=== PATIENT | female | born 1975 | race Caucasian/White ===

== ENCOUNTER → 2018-04-09 09:35 | Outpatient (CLI) | payer OTHER, SELFPAY | PROVIDERS: Family Provider Obstetrics & Gynecology; PCP Obstetrics & Gynecology; Visit Provider Physician Assistant | DX: K26.9 Duodenal ulcer, unspecified as acute or chronic, without hemorrhage or perforation (principal) | CPT/HCPCS: 83013 ==

== ENCOUNTER → 2018-05-23 10:34 | Outpatient (CLI) | payer OTHER, SELFPAY ==
--- NOTE | 2018-05-23 | DI.MG.S_ITS ---
BILATERAL DIGITAL SCREENING MAMMOGRAM 3D/2D WITH CAD: 05/23/2018 CLINICAL: Routine screening. Family history of breast cancer. Comparison is made to exam dated: 03/16/2017 mammogram - [facility]. The tissue of both breasts is heterogeneously dense. This may lower the sensitivity of mammography. Current study was also evaluated with a Computer Aided Detection (CAD) system. No significant masses, calcifications, or other findings are seen in either breast. There has been no significant interval change. IMPRESSION: NEGATIVE There is no mammographic evidence of malignancy. A 1 year screening mammogram is recommended. This exam was interpreted at Station ID: [id number]. NOTE: For mammograms, a report in lay terms will be sent to the patient. Approximately 15% of breast malignancies will not be visualized mammographically. In the management of a palpable breast mass, a negative mammogram must not discourage biopsy of a clinically suspicious lesion. Electronically Signed By: Manuel marshall/jessica:05/23/2018 17:40:05 copy to: Alyssa Leon letter sent: Normal Exam ACR BI-RADS Category 1: Negative 3341F
== END ==
PROVIDERS: PCP Obstetrics & Gynecology; Visit Provider Obstetrics & Gynecology
DX: Z12.31 Encounter for screening mammogram for malignant neoplasm of breast (principal); Z80.3 Family history of malignant neoplasm of breast
CPT/HCPCS: 77063; 77067

== ENCOUNTER 2018-07-21 22:26 | Emergency (ER) | payer OTHER, SELFPAY ==
[2018-07-21 22:38] VITALS: BP 163/94; PULSE 71; RESP 18; TEMP 36.7; O2SAT 99; BMI 22.1
--- NOTE | 2018-07-21 22:39 | ED.ABDPAIN ---
HPI - Abdominal Pain General Chief Complaint: Abdominal Pain Stated Complaint: states Ulcers Time Seen by Provider: 07/21/18 22:29 Source: patient Mode of arrival: ambulatory Limitations: no limitations History of Present Illness HPI narrative: Patient is 43-year-old female here for evaluation of which she thinks is worsening of her gastric ulcers. Patient has been diagnosed with gastric ulcers in the past. Does have a prescription for omeprazole. She states that the pain in her abdomen started within the past 12-24 hours. Does get worse after eating. She states that her normal ulcer medication at home is not working. She does feel like this abdominal pain is somewhat different than her prior ulcer pain. Related Data Previous Rx's Medication Instructions Recorded norgestimate 0.25 mg-ethinyl 1 tab PO QDAY #84 tab 04/16/18 estradiol 35 mcg tablet Allergies Allergy/AdvReac Type Severity Reaction Status Date / Time No Known Allergies Allergy Unknown Verified 07/22/18 00:07 Review of Systems Constitutional Denies fever(s) and Denies headache(s) ENT Ears, Nose, Mouth, and Throat: Denies headache(s) Cardiovascular Denies chest pain and Denies dyspnea Respiratory Denies dyspnea Gastrointestinal Gastrointestinal: Reports abdominal pain, Denies melena, Denies change in stool character, Denies constipation, Reports dyspepsia, Reports heartburn, Reports nausea and Denies vomiting Genitourinary Denies dysuria and Denies vaginal discharge Musculoskeletal Denies myalgias and Denies arthralgias Integumentary/Breasts Denies rash Neurologic Denies headache(s) Hematologic/Lymphatic Comments: Not on anticoagulation PFSH Medical History Skin cancer (Resolved) Surgical History No history of previous surgery (Resolved) Family History Father No problems noted. Mother No problems noted. Social History Smoking Status: Never smoker second hand exposure: No alcohol intake: former (I was never a big drinker. I only drank once in a while.) substance use type: does not use Exam Initial Vital Signs Initial Vital Signs: Vital Signs Temperature 98.0 F 07/21/18 22:38 Pulse Rate 71 07/21/18 22:38 Respiratory Rate 18 07/21/18 22:38 Blood Pressure 163/94 H 07/21/18 22:38 Pulse Oximetry 99 07/21/18 22:38 Const General: cooperative, healthy appearing, well developed, well groomed and No acute distress Orientation: alert, awake and oriented x3 HENMT Head: normal to inspection and normocephalic Resp Effort & Inspection: normal respiratory effort Auscultation: clear to auscultation bilaterally Cardio Rate: regular rate Rhythm: regular rhythm GI Inspection: non-distended Palpation: soft, No guarding and tender (Right upper quadrant epigastric) Back/Spine/Pelvis Back: No CVA tenderness Skin Lesions: no lesions Rashes: no rashes Neuro General: alert, awake and oriented x3 Cognition: normal cognition Speech: speech normal Motor: muscle tone normal throughout Sensory Exam: no sensory deficits noted Extrem General: normal to inspection and capillary refill normal Psych Appearance: grossly normal and well kempt Course Orders Ordered: ED Orders 07/21/18 22:51 XR abdomen 1V Stat 07/21/18 23:20 Complete Blood Count AUTO DIFF Stat Comprehensive Metabolic Panel Stat Lipase Stat 07/21/18 23:58 US abdomen complete Stat Discontinued Medications Al Hydrox/Mg Hydrox/Simethicone 20 ml/ Lidocaine HCl 15 ml 0 ml PO NOW ONE Stop: 07/21/18 22:47 Last Admin: 07/21/18 22:49 Dose: 35 ml Hydromorphone HCl (Dilaudid) 1 mg IV NOW ONE Stop: 07/22/18 01:55 Last Admin: 07/22/18 02:21 Dose: 1 mg Piperacillin/Tazobactam/Dextrose (Zosyn) 4.5 gm in 100 mls @ 200 mls/hr IV NOW ONE Stop: 07/22/18 01:23 Last Infusion: 07/22/18 02:20 Dose: 0 mls/hr Admin: 07/22/18 01:33 Dose: 200 mls/hr Morphine Sulfate (Morphine) 4 mg IV NOW ONE Stop: 07/21/18 23:31 Last Admin: 07/21/18 23:36 Dose: 4 mg Morphine Sulfate (Morphine) 4 mg IV NOW ONE Stop: 07/22/18 00:23 Last Admin: 07/22/18 00:29 Dose: 4 mg Ondansetron HCl (Zofran) 4 mg IV NOW ONE Stop: 07/21/18 23:31 Last Admin: 07/21/18 23:36 Dose: 4 mg Pantoprazole Sodium (Protonix) 40 mg IV NOW ONE Stop: 07/21/18 22:51 Last Admin: 07/21/18 23:02 Dose: 40 mg Vital Signs - 8 hr 07/21/18 22:38 07/22/18 01:39 Temperature 98.0 F Pulse Rate 71 68 Respiratory Rate 18 17 Blood Pressure 163/94 H Blood Pressure [Right Arm] 151/94 H Pulse Oximetry 99 98 MDM - Abdominal Pain Lab Data Attestation: I reviewed the patient's lab results. Result diagrams: 07/21/18 23:20 07/21/18 23:20 Lab Results 07/21/18 07/21/18 Range/Units 23:20 23:20 WBC 5.6 (4.5-11.0) X10^3/uL RBC 4.69 (4.0-5.2) X10^6/uL Hgb 13.6 (12.0-16.0) g/dL Hct 40.5 (36-46) % MCV 86.4 (80-100) fL MCH 29.1 (26-34) PG MCHC 33.7 (30-36) % RDW 13.0 (11.6-14.8) % Plt Count 305 (150-400) X10^3/uL Neut % (Auto) 75.2 H (50-75) % Lymph % (Auto) 14.7 L (25-40) % [place] % (Auto) 9.1 (3-14) % Eos % (Auto) 0.3 L (2-4) % Baso % (Auto) 0.7 (0-2) % Neut # (Auto) 4200 (5109-4903) /uL Sodium 141 (137-145) mmol/L Potassium 4.0 (3.4-5.1) mmol/L Chloride 105 (98-107) mmol/L Carbon Dioxide 24 (22-32) mmol/L BUN 13 (7-17) mg/dL Creatinine 0.80 (0.52-1.04) mg/dL Estimated GFR > 60.0 (>60) mL/min BUN/Creatinine Ratio 16.3 (6-22) Glucose 130 H (70-100) mg/dL Calcium 9.5 (8.4-10.2) mg/dL Total Bilirubin 2.2 H (0.2-1.3) mg/dL AST 240 H (14-36) IU/L ALT 164 H (9-52) IU/L Alkaline Phosphatase 233 H (38-126) U/L Total Protein 7.2 (6.3-8.2) g/dL Albumin 4.2 (3.5-5.0) g/dL Globulin 3.0 (1.7-4.1) g/dL Albumin/Globulin Ratio 1.4 (1.0-2.8) Lipase 72607 H (23-300) U/L Imaging Data Ultrasound abdomen: Radiologist's impression: Positive for acute cholecystitis and coli Kevin cholelithiasis with markedly dilated common bile duct at 13 mm with at least 2 common bile duct stones seen and possibly more distally. Multiple gallstones within the mildly edematous gallbladder wall thickening. Mild intrahepatic biliary duct dilation. Gallbladder wall 4 mm. No pericholecystic fluid. Common bile duct markedly dilated at 13 mm with a 4 mm common bile duct stone and at least 1 additional 5 mm common bile duct stone in the distal common bile duct MDM Narrative Medical decision making narrative: Patient is given a GI cocktail here in the emergency department which only mildly improved her symptoms. She does have an elevated LFT and also an elevated lipase. Right upper quadrant ultrasound concerning for cholecystitis and choledocholithiasis. Patient is afebrile. Was given multiple doses of pain medication here in the emergency department. She was also given Zosyn. Initially discussed the case with Internal Medicine at [place] who stated that gallstone pancreatitis is managed by General surgery at their facility. Transfer Center informed me that the general surgeon is in a ?long case ?I did not talk with the general surgeon however we were informed by the nursing supervisor poultry hatchery that he would accept the patient. Accepting doctor is . Patient was informed of the transfer. Patient is stable for transfer. Patient and agreed with plan. Discharge Plan Departure Patient Disposition: [facility] Clinical Impression: Choledocholithiasis with acute cholecystitis, Acute gallstone pancreatitis Prescriptions: No Action norgestimate-ethinyl estradiol [Ortho-Cyclen (28)] 0.25-35 mg-mcg tablet 1 tab PO QDAY Qty: 84 RF: 1
[2018-07-21] MEDS: MAG HYDROX/ALUMINUM/SIMETH SUS 20 ML, LIDOCAINE VISCOUS 2% 15 ML PO (22:49)
--- NOTE | 2018-07-21 22:51 | DI.RAD.S_ITS ---
PROCEDURE: XR ABDOMEN 1V INDICATIONS: epigastric abd pain with hx of ulcers TECHNIQUE: One view of the abdomen acquired. COMPARISON: None. FINDINGS: Surgical changes and devices: None. Bowel: Bowel gas pattern is normal. There is a large amount of stool in colon. Soft tissues: A small metallic density is noted in the left midabdomen. No suspicious abdominal calcifications. Visualized solid organ contours appear normal in size. Bones: No suspicious bony lesions. IMPRESSION: 1. A large amount of stool in colon. Otherwise normal bowel gas pattern. 2. A small metallic density is noted in the left mid abdomen. Dictated by: Matthew Hernadez M.D. on 07/22/2018 at 8:04 Approved by: Matthew Hernadez M.D. on 07/22/2018 at 8:05
[2018-07-21] MEDS: PANTOPRAZOLE 40 MG VIAL IV (23:02)
[2018-07-21] MEDS: ONDANSETRON 4 MG/2 ML INJ IV (23:36)
[2018-07-21] MEDS: MORPHINE 4 MG/ML INJ IV (23:36)
[2018-07-21 23:42] LABS: Alanine Aminotransferase 164 IU/L (9-52); Albumin 4.2 g/dL (3.5-5.0); Albumin Globulin Ratio 1.4 (1.0-2.8); Alkaline Phosphatase 233 U/L (38-126); Aspartate Aminotransferase 240 IU/L (14-36); BUN Creatinine Ratio 16.3 (6-22); Bilirubin Total 2.2 mg/dL (0.2-1.3); Blood Urea Nitrogen 13 mg/dL (7-17); Calcium 9.5 mg/dL (8.4-10.2); Carbon Dioxide 24 mmol/L (22-32); Chloride 105 mmol/L (98-107); Estimated Glomerular Filt Rate > 60.0 mL/min (>60); Glucose 130 mg/dL (70-100); HEMOLYSIS 21 (0-50); Sodium 141 mmol/L (137-145); Total Protein 7.2 g/dL (6.3-8.2)
[2018-07-21 23:45] LABS: Add Manual Diff / Slide Review NO; Basophils Percent Auto 0.7 % (0-2); Eosinophils Percent Auto 0.3 % (2-4); Hematocrit 40.5 % (36-46); Hemoglobin 13.6 g/dL (12.0-16.0); Lymphocytes Percent Auto 14.7 % (25-40); Mean Corpuscular HGB Conc 33.7 % (30-36); Mean Corpuscular Hemoglobin 29.1 PG (26-34); Mean Corpuscular Volume 86.4 fL (80-100); Monocytes Percent Auto 9.1 % (3-14); Neutrophils Absolute Auto 4200 /uL (1500-7000); Neutrophils Percent Auto 75.2 % (50-75); Platelet Count 305 X10^3/uL (150-400); Red Blood Cell Count 4.69 X10^6/uL (4.0-5.2); White Blood Cell Count 5.6 X10^3/uL (4.5-11.0)
[2018-07-21 23:51] LABS: Lipase 18666 U/L (23-300)
--- NOTE | 2018-07-21 23:58 | DI.US.S_ITS ---
PROCEDURE: US ABDOMEN COMPLETE INDICATIONS: PAIN TECHNIQUE: Real-time scanning was performed of the abdominal and retroperitoneal organs, with image documentation. COMPARISON: None. FINDINGS: Liver: Liver is normal in size and homogeneous in echotexture. Gallbladder: Gallbladder contains mobile stones. There is mild gallbladder wall thickening to 4.1 mm. No pericholecystic fluid. Positive sonographic Bunch sign reported. Biliary ducts: Intrahepatic bile ducts are non-dilated. Extrahepatic bile duct caliber measures 13.0 mm. Normal is 6-7 mm or less in diameter, or 10 mm or less post-cholecystectomy. There is a 4 mm stone in the common bile duct and possibly additional stones in the distal common bile duct. Pancreas: Visualized portions of the pancreas are sonographically normal. Spleen: Spleen is normal in size and homogeneous in echotexture. Kidneys: Kidneys are normal in size and echotexture. Right kidney measures 9.6 cm long; left kidney measures 9.5 cm long. No hydronephrosis or nephrolithiasis. No solid masses. Aorta: Visualized aorta is normal in caliber at less than 3 cm. Iliacs: Proximal common iliac arteries are normal in caliber at less than 2.5 cm. IVC: Intrahepatic inferior vena cava is patent. Miscellaneous: No free abdominal fluid. IMPRESSION: 1. Cholelithiasis with gallbladder wall thickening and positive sonographic Bunch sign compatible with acute cholecystitis. 2. Choledocholithiasis with dilated bile ducts compatible with biliary obstruction. Dictated by: Betty Granados MD, PhD on 07/22/2018 at 8:37 Approved by: Betty Granados MD, PhD on 07/22/2018 at 8:39
[2018-07-22] MEDS: MORPHINE 4 MG/ML INJ IV (00:29)
[2018-07-22] MEDS: PIPERACILLIN-TAZO 4.5 GM/100 ML FROZ.PIGGY IV (01:33)
[2018-07-22 01:39] VITALS: BP 151/94; PULSE 68; RESP 17; O2SAT 98
[2018-07-22] MEDS: HYDROMORPHONE 1 MG INJ IV ×2 (02:21→04:56)
[2018-07-22 04:43] VITALS: BP 100/69; PULSE 94; RESP 16; O2SAT 97
[2018-07-22] MEDS: SODIUM CHLORIDE 0.9% 1,000 ML 125 ML IV (04:55)
[2018-07-22] MEDS: ONDANSETRON 4 MG/2 ML INJ IV (04:56)
== END 2018-07-22 05:10 | disposition short-term general hospital (02) ==
PROVIDERS: Emergency Provider Emergency Medicine; PCP Obstetrics & Gynecology
DX: K80.42 Calculus of bile duct with acute cholecystitis without obstruction (principal); K85.10 Biliary acute pancreatitis without necrosis or infection
CPT/HCPCS: 36591; 74018; 76700; 80053; 83690; 85025; 96365; 96375; 96376; 99283; 99284; C9113; J1170; J2270; J2405; J2543

== ENCOUNTER → 2019-06-03 10:16 | Outpatient (CLI) | payer OTHER, SELFPAY ==
[2019-06-03 12:06] LABS: Cancer Antigen 125 < 6 U/mL (0-35)
== END ==
PROVIDERS: PCP Physician Assistant; Visit Provider Obstetrics & Gynecology
DX: N83.209 Unspecified ovarian cyst, unspecified side (principal)
CPT/HCPCS: 36415; 86304

== ENCOUNTER → 2020-02-06 09:26 | Outpatient (CLI) | payer OTHER, SELFPAY ==
[2020-02-08 02:33] LABS: COVID19 Sendout Not Detected (Not Detect)
== END ==
PROVIDERS: PCP Physician Assistant; Visit Provider Physician Assistant
DX: Z01.818 Encounter for other preprocedural examination (principal)
CPT/HCPCS: 87635

== ENCOUNTER 2020-02-09 06:23 | Day surgery (SDC) | payer OTHER, SELFPAY ==
[2020-02-05 11:19] VITALS: BMI 24.2
[2020-02-09] VITALS (8 sets, daily range): BP systolic 106–119; BP diastolic 75–83; PULSE 70–97; RESP 13–20; TEMP 35.9–36.6; O2SAT 95–100; BMI 24.3
--- NOTE | 2020-02-09 06:58 | P.HPOB_ITS ---
History of Present Illness History of Present Illness Narrative: Sandra Townsend is a 44 year old female 5 para 4 with a persistent right ovarian cyst who presents for a laparoscopic removal of a right ovarian cyst [facility] Medical History Polycystic ovaries (Acute) Skin cancer (Resolved) Surgical History No history of previous surgery (Resolved) Family History Father No problems noted. Mother No problems noted. Social History Smoking Status: Never smoker second hand exposure: No alcohol intake: former substance use type: does not use Meds Home Medications and Allergies Home Medications Medication Instructions Recorded Confirmed Type acetaminophen 500 mg tablet 1,000 mg PO Q6H PRN 07/31/18 01/27/20 History norethindrone 1 mg-ethinyl 1 tab PO DAILY 08/08/19 01/27/20 History estradiol 20 mcg (24)-iron 75 mg (4) tablet Allergies Allergy/AdvReac Type Severity Reaction Status Date / Time No Known Allergies Allergy Unknown Verified 01/27/20 10:32 Exam Vital Signs (past 8 hours): HEENT: No thyromegaly, no anterior cervical or supraclavicular lymphadenopathy. Lungs:Clear to auscultation bilaterally, no wheezes. Cardiovascular: Regular rate and rhythm, no murmurs, rubs, or gallops. Abdomen: No scars. No hepatosplenomegaly. No masses palpable. External genitalia: Normal Vagina: Normal Cervix: Normal Bimanual exam: 7 Week size uterus. Mobile. Rectal: No masses. Assessment & Plan Assessment & Plan narrative: Assessment: 44-year-old 5 para 4 with a persistent right ovarian cyst despite continuous oral contraceptives Plan: Laparoscopic removal of right ovarian cyst. The risks, benefits, and alternatives to the procedure were explained to the patient. The risks including bleeding, infection, injury to the bowel, bladder, or ureters. She understands these risks and agrees to proceed. A full par Q was held and consent form was signed. COVID-19 COVID-19 status: Negative Result date/Date tested (Pos, Neg/Pending): 02/06/20 Time Spent With Patient Time with patient: 15-24 minutes
--- NOTE | 2020-02-09 07:02 | PM.PREOP ---
Pre-operative Note COVID-19 COVID-19 status: Negative Result date/Date tested (Pos, Neg/Pending): 02/06/20 Interval Note History & Physical reviewed/Exam performed by Physician: Yes Changes to H&P: No
[2020-02-09] MEDS: LACTATED RINGERS 1,000 ML 42 ML IV (07:24)
--- NOTE | 2020-02-09 08:50 | SUR.OPER ---
Lithotomy on padded OR bed, head on pillow, arms secured on padded arm boards at <90 degrees abduction. Legs secured in padded yellow fins stirrups.
[2020-02-09] MEDS: BUPIVACAINE 0.5% W/ EPI (PF) 30 ML VIAL INJ (08:58)
[2020-02-09] MEDS: LACTATED RINGERS 1,000 ML 120 ML IV (09:23)
--- NOTE | 2020-02-09 09:28 | SUR.PHASEI ---
received to PACU at 0923. Oral airway in place. No futher airway assistance required. Report received from Brenda Garcia RN and Dr Barnes. 0945 - Oral airway removed without difficulty.
--- NOTE | 2020-02-09 09:45 | SUR.PHASEI ---
Left voicemail at Dr Dudley's office to schedule post op report.
--- NOTE | 2020-02-09 09:46 | PM.GYNOP.1 ---
Operative Date/Time/Diagnoses Date of procedure: 02/09/20 Time of procedure: 09:47 Pre-op diagnosis: Persistent right ovarian cyst despite continuous oral contraceptives Post-op diagnosis: same Procedure & Clinicians Procedure: Procedures Operation Date: 02/09/20 07:45 Actual Procedures Side Surgeon p Laparoscopic Right Ovarian cauterization of cyst Radha Dudley MD Indications: Persistent right ovarian cyst Surgeon: Radha Dudley Anesthesia Type: General Operative Notes Findings: Bilateral ovarian cysts Normal appendix Normal tubes and uterus Status post cholecystectomy Normal liver Closure Type: primary Specimen(s): none Applied: catheter (In an out at the beginning of the case) Estimated blood loss (mL): 3 Blood products transfused: none Procedure in detail: After informed consent was obtained, the patient was taken to the operating room where she was placed in the dorsal supine position. After adequate general endotracheal anesthesia was achieved, she was placed in the dorsal lithotomy position, and prepped and draped in the usual sterile fashion. A time-out was performed. A red rubber catheter was used to drain the bladder. A bivalve speculum was placed into the vagina and the anterior lip of the cervix grasped with a single-tooth tenaculum. The cervical os was dilated to the # 8 Hegar dilator. The Zumi uterine manipulator was placed. The single-tooth tenaculum was removed from the anterior lip of the cervix. The bivalve speculum was removed from the vagina. The outer gloves were removed. Attention was then turned to the abdomen where 6 cc of 0.5% Marcaine with epinephrine were injected above the umbilicus through a previous laparoscopy incision. A 5 mm incision was made. The Veress needle was placed into the peritoneal cavity, and its placement confirmed by aspiration and drop test. The abdominal cavity was insufflated with 3.4 L of CO2. The Veress needle was removed, and a 5 mm trocar was placed without difficulty. Initial inspection of the pelvis and abdomen revealed the findings noted above. Two other trocars were placed. The 1st 1 was above the pubic symphysis after 6 cc of 0.5% Marcaine with epinephrine were injected, and the other 1 was midway between the pubic symphysis and umbilicus 4 cm to the right of midline. Two 5 mm trocars were placed under direct visualization. The right ovary was stabilized with the probe. Using the point cautery, approximately 5 small cysts were opened and drained. The PlasmaKinetic was used for hemostasis. On the left side the ovary was stabilized with the probe. The point cautery was used to open 1 very large cyst. This bled a little at the edges and the PlasmaKinetic was used for hemostasis. The pelvis was examined and was found to be hemostatic. The instruments were removed from the abdomen. The CO2 was allowed to escape. The incisions were closed with 4 0 Biosyn in a subcuticular fashion. Mastisol and Steri-Strips were placed. 2 x 2 and op site were placed. The Zumi uterine manipulator was removed from the uterus. Sponge, lap, and instrument counts were correct x2. The patient tolerated the procedure well, and was taken to PACU in stable condition. Complications: none Post-operative Condition: stable Disposition: PACU Plan for aftercare: Home after recovery
== END 2020-02-09 10:23 | disposition home or self-care (01) ==
PROVIDERS: PCP Physician Assistant; Referring Provider Obstetrics & Gynecology; Visit Provider Obstetrics & Gynecology
PROC: (CPT 58662; principal; 2020-02-09 07:45)
DX: N83.201 Unspecified ovarian cyst, right side (principal); N83.202 Unspecified ovarian cyst, left side
CPT/HCPCS: 58662; J0330; J1100; J1885; J2250; J2405; J2704; J3010

== ENCOUNTER → 2020-03-25 09:58 | Outpatient (CLI) | payer OTHER, SELFPAY ==
[2020-03-25 10:26] LABS: Add Manual Diff / Slide Review NO; Basophils Absolute Auto 100 /uL (0-100); Basophils Percent Auto 1.2 % (0-2); Eosinophils Absolute Auto 200 /uL (0-450); Eosinophils Percent Auto 4.4 % (2-4); Hematocrit 35.7 % (36-46); Hemoglobin 11.9 g/dL (12.0-16.0); Lymphocytes Absolute Auto 1900 /uL (1100-4500); Lymphocytes Percent Auto 40.1 % (25-40); Mean Corpuscular HGB Conc 33.5 % (30-36); Mean Corpuscular Hemoglobin 28.6 PG (26-34); Mean Corpuscular Volume 85.6 fL (80-100); Monocytes Absolute Auto 500 /uL (0-900); Monocytes Percent Auto 10.3 % (3-14); Neutrophils Absolute Auto 2100 /uL (1500-7000); Platelet Count 313 X10^3/uL (150-400); Red Blood Cell Count 4.17 X10^6/uL (4.0-5.2); Red Cell Distribution Width 14.2 % (11.6-14.8); White Blood Cell Count 4.7 X10^3/uL (4.5-11.0)
[2020-03-25 10:32] LABS: Alanine Aminotransferase 8 IU/L (<35); Albumin 4.3 g/dL (3.5-5.0); Albumin Globulin Ratio 1.3 (1.0-2.8); Alkaline Phosphatase 82 U/L (38-126); Aspartate Aminotransferase 18 IU/L (14-36); BUN Creatinine Ratio 17.6 (6-22); Bilirubin Total 0.5 mg/dL (0.2-1.3); Blood Urea Nitrogen 15 mg/dL (7-17); Calcium 9.2 mg/dL (8.4-10.2); Carbon Dioxide 30 mmol/L (22-32); Chloride 102 mmol/L (98-107); Estimated Glomerular Filt Rate > 60.0 mL/min (>60); Globulin 3.3 g/dL (1.7-4.1); Glucose 84 mg/dL (70-100); HEMOLYSIS < 15 (0-50); Lipase 67 U/L (23-300); Sodium 136 mmol/L (137-145); Total Protein 7.6 g/dL (6.3-8.2)
[2020-03-26 03:38] LABS: HBsAg Screen Negative (Negative); Hepatitis A Antibody IgM Negative (Negative); Hepatitis B Core Antibody IgM Negative (Negative); Hepatitis C Antibody 0.1 s/co ratio (0.0-0.9)
[2020-03-26 07:19] LABS: Alpha Fetoprotein 2.5 ng/mL (0.0-8.3)
== END ==
PROVIDERS: PCP Registered Nurse; Referring Provider Registered Nurse; Visit Provider Registered Nurse
DX: R10.9 Unspecified abdominal pain (principal); R74.8 Abnormal levels of other serum enzymes
CPT/HCPCS: 36415; 80053; 80074; 82105; 83690; 85025

== ENCOUNTER → 2020-03-29 07:50 | Outpatient (CLI) | payer OTHER, SELFPAY ==
--- NOTE | 2020-03-29 07:52 | DI.US.S_ITS ---
PROCEDURE: US ABDOMEN COMPLETE INDICATIONS: PAIN TECHNIQUE: Real-time scanning was performed of the abdominal and retroperitoneal organs, with image documentation. COMPARISON: [facility], US, US PELVIC COMPLETE, 01/27/2020, 11:01. [facility], US, US ABDOMEN COMPLETE, 07/22/2018, 0:20. FINDINGS: Liver: Liver is normal in size and homogeneous in echotexture. Patent main portal vein measuring 1.2 cm. Expected hepatopetal flow. Gallbladder: Surgically absent. No fluid in the gallbladder fossa. Biliary ducts: Intrahepatic bile ducts are non-dilated. Extrahepatic bile duct caliber measures 9 mm. Normal is 6-7 mm or less in diameter, or 10 mm or less post-cholecystectomy. Pancreas: Visualized portions of the pancreas are sonographically normal. Spleen: Spleen is normal in size and homogeneous in echotexture. Measures 8.7 cm. Kidneys: Kidneys are normal in size and echotexture. Right kidney measures 9.2 cm long; left kidney measures 9.4 cm long. No hydronephrosis or nephrolithiasis. No solid masses. Aorta: Visualized aorta is normal in caliber at less than 3 cm. Iliacs: Proximal common iliac arteries are normal in caliber at less than 2.5 cm. IVC: Intrahepatic inferior vena cava is patent. Miscellaneous: No free abdominal fluid. IMPRESSION: 1. Post cholecystectomy. 2. Visualized bile ducts are within normal limits. 3. No hydronephrosis. If symptoms persist consider further evaluation with CT abdomen pelvis with IV contrast. Dictated by: Farhan Mckeon M.D. on 03/29/2020 at 8:40 Approved by: Farhan Mckeon M.D. on 03/29/2020 at 8:44
== END ==
PROVIDERS: PCP Registered Nurse; Referring Provider Registered Nurse; Visit Provider Registered Nurse
DX: R10.9 Unspecified abdominal pain (principal); R74.8 Abnormal levels of other serum enzymes; Z90.49 Acquired absence of other specified parts of digestive tract
CPT/HCPCS: 76700

== ENCOUNTER → 2021-09-15 16:40 | Outpatient (CLI) | payer BC, SELFPAY ==
--- NOTE | 2021-09-15 16:44 | DI.MG.S_ITS ---
BILATERAL DIGITAL SCREENING MAMMOGRAM 3D/2D WITH CAD: 09/15/2021 CLINICAL: Routine screening. Family history of breast cancer. Comparison is made to exams dated: 05/23/2018 mammogram and 03/16/2017 mammogram - [facility]. The tissue of both breasts is heterogeneously dense. This may lower the sensitivity of mammography. Current study was also evaluated with a Computer Aided Detection (CAD) system. There is an asymmetry in the right breast posterior depth superior region seen on the mediolateral oblique view only. This is more prominent and increased in size. No other significant masses, calcifications, or other findings are seen in either breast. IMPRESSION: INCOMPLETE: NEEDS ADDITIONAL IMAGING EVALUATION The asymmetry in the right breast is indeterminate. Additional views with possible ultrasound are recommended. This exam was interpreted at Station ID: [id number]. NOTE: For mammograms, a report in lay terms will be sent to the patient. Approximately 15% of breast malignancies will not be visualized mammographically. In the management of a palpable breast mass, a negative mammogram must not discourage biopsy of a clinically suspicious lesion. Electronically Signed By: Alondra short/jessica:09/15/2021 17:08:47 copy to: Alyssa Leon letter sent: Additional Imaging Needed ACR BI-RADS Category 0: Incomplete 3340F
== END ==
PROVIDERS: PCP Registered Nurse; Referring Provider Registered Nurse; Visit Provider Registered Nurse
DX: Z12.31 Encounter for screening mammogram for malignant neoplasm of breast (principal); Z80.3 Family history of malignant neoplasm of breast
CPT/HCPCS: 77063; 77067

== ENCOUNTER → 2021-09-21 12:26 | Outpatient (CLI) | payer BC, SELFPAY ==
--- NOTE | 2021-09-21 | DI.MG.S_ITS ---
UNILATERAL RIGHT DIGITAL DIAGNOSTIC MAMMOGRAM 3D/2D WITH ADDITIONAL VIEWS: 09/21/2021 CLINICAL: Additional evaluation requested from prior study. Comparison is made to exams dated: 09/15/2021 mammogram, 05/23/2018 mammogram, and 03/16/2017 mammogram - [facility]. The tissue of right breast is heterogeneously dense. This may lower the sensitivity of mammography. With focal spot compression, and additional views, the asymmetry in the right breast at 11 o'clock seen on screening mammography resolves. This is consistent with overlapping fibroglandular tissue. No significant masses, calcifications, or other findings are seen in the breast. IMPRESSION: PROBABLY BENIGN Resolution of screening mammography abnormality with additional views. A follow-up right mammogram in 6 months is recommended to demonstrate stability of this area. Findings and recommendations were conveyed to the patient at time of exam. This exam was interpreted at Station ID: [id number]. NOTE: For mammograms, a report in lay terms will be sent to the patient. Approximately 15% of breast malignancies will not be visualized mammographically. In the management of a palpable breast mass, a negative mammogram must not discourage biopsy of a clinically suspicious lesion. Electronically Signed By: Alondra short/:09/21/2021 13:37:26 letter sent: Followup Recommended ACR BI-RADS Category 3: Probably benign 3343F
== END ==
PROVIDERS: PCP Registered Nurse; Referring Provider Registered Nurse; Visit Provider Registered Nurse
DX: R92.8 Other abnormal and inconclusive findings on diagnostic imaging of breast (principal)
CPT/HCPCS: 77065; G0279

== ENCOUNTER → 2022-04-17 11:55 | Outpatient (CLI) | payer BC, SELFPAY ==
--- NOTE | 2022-04-17 11:56 | DI.MG.S_ITS ---
UNILATERAL RIGHT DIGITAL DIAGNOSTIC MAMMOGRAM 3D/2D SHORT-TERM FOLLOW-UP: 04/17/2022 CLINICAL: Short term follow up of the right breast. Comparison is made to exams dated: 09/21/2021 mammogram, 09/15/2021 mammogram, 05/23/2018 mammogram, 09/21/2021 mammogram, 09/21/2021 mammogram, and 03/16/2017 mammogram - [facility]. The right breast is heterogeneously dense, which may obscure small masses (category c / 51-75% glandular tissue). There is a possible asymmetry in the right breast posterior depth superior region seen on the prior mediolateral oblique view only. This is again not seen in additional views. No other significant masses or calcifications are seen in the breast. IMPRESSION: NEGATIVE There is no mammographic evidence of malignancy. Possible asymmetry in the right breast is consistent with fibroglandular tissue and is benign. Return to annual mammogram screening schedule is recommended. 10/17/2022 This exam was interpreted at Station ID: [id number]. NOTE: For mammograms, a report in lay terms will be sent to the patient. Approximately 15% of breast malignancies will not be visualized mammographically. In the management of a palpable breast mass, a negative mammogram must not discourage biopsy of a clinically suspicious lesion. Electronically Signed By: Farhan Mckeon M.D. slc/:04/17/2022 12:26:08 letter sent: Normal Exam ACR BI-RADS Category 1: Negative 3341F
== END ==
PROVIDERS: PCP Registered Nurse; Referring Provider Registered Nurse; Visit Provider Registered Nurse
DX: R92.8 Other abnormal and inconclusive findings on diagnostic imaging of breast (principal)
CPT/HCPCS: 77065; G0279

== ENCOUNTER → 2022-11-29 10:01 | Outpatient (CLI) | payer BC, SELFPAY ==
--- NOTE | 2022-11-29 10:02 | DI.US.S_ITS ---
PROCEDURE: US PELVIC COMPLETE INDICATIONS: RIGHT OVARIAN CYST TECHNIQUE: Real-time scanning was performed of the pelvic organs, with image documentation. Additional endovaginal scanning was necessary due to incomplete visualization of the adnexal and endometrial structures by transabdominal scanning. COMPARISON: [facility], US, US PELVIC COMPLETE, 09/23/2019, 14:20. [facility], US, US PELVIC COMPLETE, 01/27/2020, 11:01. [facility], , US PELVIC COMPLETE, 12/13/2021, 10:16. FINDINGS: Uterus: Uterus is anteverted and normal in size at 9.2 x 4.3 x 5.3 cm. The myometrium is homogeneous. The endometrium measures 9 mm combined thickness. Ovaries: The right ovary measures 7.1 x 4.2 x 6.2 cm, with a calculated ovarian volume of 95.5 cc. Within the right ovary, there is a 6.1 x 4.6 x 5.9 cm simple cyst seen, which has increased in size compared to 2021. The left ovary measures 2.6 x 3.2 x 1.9 cm, with a calculated ovarian volume of 8.6 cc. Less than 12 follicles can be seen in each ovary. No adnexal masses are seen. Other: No pathologic free abdominal or pelvic fluid. IMPRESSION: 6.1 cm simple appearing right ovarian cyst. If it would be clinically appropriate, a followup pelvic ultrasound could be considered in 6 weeks to assure resolution/ improvement. We strive to produce accurate, complete, and clear reports of imaging services. To assist us in improving patient care, this report was composed using standard report templates and voice recognition software. Therefore, it may contain abnormal punctuation, insertions and/or omissions. Occasional wrong-word or sound-alike substitutions may occur. Though we review the report and make efforts to correct it, we do recommend that the report be read carefully in proper context to recognize any text inaccuracies. Dictated by: Natalio Raya M.D. on 11/29/2022 at 11:15 Approved by: Natalio Raya M.D. on 11/29/2022 at 11:17
== END ==
PROVIDERS: Referring Provider Obstetrics & Gynecology; Visit Provider Obstetrics & Gynecology
DX: R10.9 Unspecified abdominal pain (principal); N83.201 Unspecified ovarian cyst, right side
CPT/HCPCS: 76830; 76856; 93976

== ENCOUNTER 2023-01-25 07:03 | Day surgery (SDC) | payer BC, SELFPAY ==
[2023-01-25] VITALS (7 sets, daily range): BP systolic 112–132; BP diastolic 71–92; PULSE 72–89; RESP 12–18; TEMP 36.3–36.8; O2SAT 96–98; BMI 24.7
--- NOTE | 2023-01-25 | PATH_ITS ---
[facility] Accession Number: [id number] No. of containers..01 Tissue . 01 Material submitted: . fallopian tube - B BILATERAL FALLOPIAN TUBES . 01 Diagnosis: Left and Right Fallopian Tubes, Bilateral Salpingectomy: Two fimbriated fallopian tubes and separate segment of fallopian tube without significant pathologic abnormality. V 01/31/2023 1501 Local . 01 Electronically signed: . Laquita Lindsay MD, Pathologist NPI- [id number] . 01 Gross description: . The specimen is received in formalin labeled with the patient's name, , and B. fallopian tubes (no Part A received), and consists of two fimbriated fallopian tubes and a tubular soft tissue fragment. The fimbriated fallopian tubes measure 4.1 x 0.5 cm and 3.2 x 0.7 cm. The tubular fragment measures 2.8 x 0.4 cm. The longer fallopian tube has banks smooth serosa with no cystic structures identified. Sectioning reveals an unremarkable stellate lumen. The shorter fallopian tube has violaceous smooth serosa with no cystic structures identified. Sectioning reveals an unremarkable stellate lumen. The tubular soft tissue fragment has banks, smooth serosa with no cystic structures identified. Sectioning reveals and unremarkable stellate lumen. Chemic Mangler sections to include one-half of bisected fimbriae and cross sections are submitted as follows: A1: Longer fallopian tube. A2: [place] fallopian tube. A3: Nonfimbriated fragment. ([id number]) /PEG 01/27/2023 1614 Local . 01 Pathologist provided ICD-10: N83.209 . 01 CPT . 543279 Specimen Comment: A courtesy copy of this report has been sent to [phone] Performed at: 01 [facility] [address], [place], [place] [id number] MD Manuel Pacheco MD Phone: [phone]
[2023-01-25] MEDS: LACTATED RINGERS 1,000 ML 100 ML IV ×2 (07:22→09:50)
--- NOTE | 2023-01-25 08:19 | SUR.OPER ---
Lithotomy on padded OR bed, head on pillow, arms secured on padded arm boards at <90 degrees abduction. Legs secured in padded yellow fins stirrups.
--- NOTE | 2023-01-25 08:37 | PM.GYNHP.1 ---
History of Present Illness History of Present Illness Reason for admission: other (right ovarian cyst) Narrative: Sandra Townsend is a 47 year old female 5 para 4 with a persistent right ovarian cyst. She presents for a laparoscopic right salpingo-oophorectomy and left salpingectomy. [facility] Medical History (Updated 12/13/21 @ 10:14 by Radha Dudley MD) Abnormal mammogram Cervical cancer screening Polycystic ovaries Screening for HPV (human papillomavirus) Skin cancer Surgical History (Updated 01/19/23 @ 12:00 by Suyapa Ornelas RN) History of gynecologic surgery (02/09/20) Family History Father No problems noted. Mother No problems noted. Social History household members: spouse, family and children Smoking Status: Never smoker second hand exposure: No alcohol intake: current substance use type: does not use Meds Home Medications and Allergies Home Medications Medication Instructions Recorded Confirmed Type norethindrone 1.5 mg-ethinyl See Rx Instructions .Route 08/11/22 01/25/23 Rx estradiol 30 mcg(21)/iron 75 mg(7) .COMPLEX #84 tabs tablet (Junel FE 1.5/30 (28)) Allergies Allergy/AdvReac Type Severity Reaction Status Date / Time No Known Allergies Allergy Unknown Verified 01/25/23 07:24 Exam Vital Signs (past 8 hours): - 01/25/23 07:25 Temperature 97.9 F Pulse Rate 89 Respiratory Rate 18 Blood Pressure 132/92 H Pulse Oximetry 98 Oxygen Delivery Method Room Air Oxygen Delivery Method Room Air Narrative Exam Narrative: HEENT: No thyromegaly, no anterior cervical or supraclavicular lymphadenopathy. Lungs:Clear to auscultation bilaterally, no wheezes. Cardiovascular: Regular rate and rhythm, no murmurs, rubs, or gallops. Abdomen: Well-healed laparoscopy scars. No hepatosplenomegaly. No masses palpable. External genitalia: Normal Vagina: Normal Cervix: Normal Bimanual exam: 8 Week size uterus. Mobile. Right adnexal fullness and tenderness. No left adnexal fullness or tenderness. Extremities: No edema Assessment & Plan Assessment & Plan narrative: Assessment: 47-year-old 5 para 4 with a persistent and enlarging right ovarian cyst Recurrent cyst on the same side Plan: Laparoscopic right salpingo-oophorectomy and left salpingectomy The risks, benefits, and alternatives to the procedure were explained to the patient. The risks including bleeding, infection, injury to the bowel, bladder, or ureters. She understands these risks and agrees to proceed. A full par Q was held and consent form was signed. Time Spent With Patient Time with patient: less than 30 minutes
--- NOTE | 2023-01-25 08:40 | PM.PREOP ---
Pre-operative Note COVID-19 Criteria for continued procedure: Non-surgical alternatives not available or appropriate per current SOC Interval Note History & Physical reviewed/Exam performed by Physician: Yes Changes to H&P: No H&P completed within 30 days and has changed as indicated here:: 01/25/23
[2023-01-25] MEDS: BUPIVACAINE 0.5% (PF) 30 ML, EPINEPHrine 0.15 MG INJ (09:54)
--- NOTE | 2023-01-25 10:20 | PM.GYNOP.1 ---
Operative Date/Time/Diagnoses Date of procedure: 01/25/23 Time of procedure: 10:21 Pre-op diagnosis: Persistent and enlarging right ovarian cyst Post-op diagnosis: same Procedure & Clinicians Procedure: Procedures Operation Date: 01/25/23 08:45 Actual Procedure Side Surgeon p Laparoscopic BILATERAL SALPINGECTOMY Bilateral Radha Dudley MD Indications: Persistent and enlarging right ovarian cyst Surgeon: Radha Dudley Anesthesia Type: General and Local Operative Notes Findings: 8 week size anteverted uterus Normal tubes and ovaries Right ovarian cyst resolved Normal appendix Normal liver and gallbladder Closure Type: primary Specimen(s): left tube and right tube Estimated blood loss (mL): 5 Blood products transfused: none Procedure in detail: After informed consent was obtained, the patient was taken to the operating room where she was placed in the dorsal supine position. After adequate general endotracheal anesthesia was achieved, she was placed in the dorsal lithotomy position, and prepped and draped in the usual sterile fashion. A time-out was performed. A bivalve speculum was placed into the vagina and the anterior lip of the cervix was grasped with a single-tooth tenaculum. The cervical os was sequentially dilated until the Zumi uterine manipulator could pass easily into the endometrial cavity. The single-tooth tenaculum was removed from the anterior lip of the cervix. The bivalve speculum was removed from the vagina. Attention was then turned to the abdomen where 6 cc of 0.5% Marcaine with epinephrine were injected above the umbilicus through a previous incision. A 12 mm incision was made. A 12 mm blunt-tip trocar with a cough was placed without difficulty. Initial inspection of the pelvis and abdomen revealed the findings noted above. Two other incisions were made 4 cm lateral to the midline at the level of the umbilicus. These were 5 mm incisions. Two 5 mm trocars were placed under direct visualization. The pelvis and abdomen were examined with findings noted above. The probe was used to identify both ovaries. The right tube was grasped with an atraumatic grasper. Using the LigaSure, the mesosalpinx was cauterized and cut all the way down to the cornua of the uterus. The tube was amputated at the cornua. This was repeated on the patient's left tube. The tubes were brought through the 5 mm trocar. The pelvis was examined and there was no bleeding noted. The instruments were removed from the abdomen. The CO2 was allowed to escape. The trocars were removed. The fascia on the umbilical incision was closed with a [id number] suture with 0 Vicryl. All of the skin incisions were closed with 4-0 Monocryl in a subcuticular fashion. Steri-Strips and Allevyn dressings were placed. The Zumi uterine manipulator was removed from the uterus. Sponge, lap, and instrument counts were correct x2. The patient tolerated the procedure well, and was taken PACU in stable condition. Complications: none Post-operative Condition: stable Disposition: PACU Plan for aftercare: Home after recovery
[2023-01-25] MEDS: ONDANSETRON 4 MG/2 ML INJ IV (11:05)
== END 2023-01-25 11:28 | disposition home or self-care (01) ==
PROVIDERS: Referring Provider Obstetrics & Gynecology; Visit Provider Obstetrics & Gynecology
PROC: 0UT24ZZ Resection of Bilateral Ovaries, Percutaneous Endoscopic Approach (ICD-10-PCS; CPT 58661; principal; 2023-01-25 08:45)
DX: N83.201 Unspecified ovarian cyst, right side (principal)
CPT/HCPCS: 58661; 81025; J0171; J1100; J1170; J1885; J2405; J3010

== ENCOUNTER → 2023-04-24 13:59 | Outpatient (CLI) | payer BC, SELFPAY ==
[2023-04-24 14:33] LABS: Add Manual Diff / Slide Review NO; Basophils Absolute Auto 0 /uL (0-100); Basophils Percent Auto 0.8 % (0-2); Eosinophils Absolute Auto 100 /uL (0-450); Eosinophils Percent Auto 2.1 % (2-4); Hematocrit 34.5 % (36-46); Hemoglobin 11.7 g/dL (12.0-16.0); Lymphocytes Absolute Auto 2600 /uL (1100-4500); Lymphocytes Percent Auto 52.2 % (25-40); Mean Corpuscular HGB Conc 33.9 % (30-36); Mean Corpuscular Hemoglobin 29.3 PG (26-34); Mean Corpuscular Volume 86.4 fL (80-100); Monocytes Absolute Auto 400 /uL (0-900); Monocytes Percent Auto 7.7 % (3-14); Neutrophils Absolute Auto 1900 /uL (1500-7000); Neutrophils Percent Auto 37.2 % (50-75); Platelet Count 337 X10^3/uL (150-400); Red Blood Cell Count 3.99 X10^6/uL (4.0-5.2)
[2023-04-24 15:04] LABS: Alanine Aminotransferase 12 IU/L (<35); Albumin 4.1 g/dL (3.5-5.0); Albumin Globulin Ratio 1.2 (1.0-2.8); Alkaline Phosphatase 78 U/L (38-126); Aspartate Aminotransferase 20 IU/L (14-36); BUN Creatinine Ratio 15.4 (6-22); Blood Urea Nitrogen 12 mg/dL (7-17); Calcium 9.3 mg/dL (8.4-10.2); Carbon Dioxide 26 mmol/L (22-32); Chloride 103 mmol/L (98-107); Estimated Glomerular Filt Rate > 60 mL/min (>60); Globulin 3.3 g/dL (1.7-4.1); Glucose 94 mg/dL (70-100); HEMOLYSIS < 15 (0-50); Potassium 3.7 mmol/L (3.4-5.1); Sodium 137 mmol/L (137-145); Total Protein 7.4 g/dL (6.3-8.2)
[2023-04-24 15:12] LABS: Bilirubin Total < 0.1 mg/dL (0.2-1.3)
[2023-04-24 15:33] LABS: TSH w/ Reflex to FT4 1.13 uIU/mL (0.47-4.68)
== END ==
PROVIDERS: PCP Student in an Organized Health Care Education/Training Program; Referring Provider Student in an Organized Health Care Education/Training Program; Visit Provider Student in an Organized Health Care Education/Training Program
DX: R53.83 Other fatigue (principal); R63.5 Abnormal weight gain
CPT/HCPCS: 36415; 80053; 84443; 85025

== ENCOUNTER → 2024-04-18 09:27 | Outpatient (CLI) | payer BC, SELFPAY ==
--- NOTE | 2024-04-18 09:28 | DI.MG.S_ITS ---
BILATERAL DIGITAL SCREENING MAMMOGRAM 3D/2D WITH CAD: 04/18/2024 CLINICAL: Routine screening. Family history of breast cancer. Comparison is made to exams dated: 09/15/2021 mammogram, 05/23/2018 mammogram, and 03/16/2017 mammogram - [facility]. There are scattered areas of fibroglandular density (category b / 25%-50% glandular tissue). Current study was also evaluated with a Computer Aided Detection (CAD) system. No significant masses, calcifications, or other findings are seen in either breast. There has been no significant interval change. IMPRESSION: NEGATIVE There is no mammographic evidence of malignancy. A 1 year screening mammogram is recommended. Based on the Tyrer Cuzick model (a risk assessment model) the patient's lifetime risk is 10.2% and her 10 year risk is 2.2%. According to the ACR, ACS, and NCCN guidelines, an annual breast MRI exam along with mammogram is recommended if the patient's lifetime risk is 20% or greater. This exam was interpreted at Station ID: [id number]. NOTE: For mammograms, a report in lay terms will be sent to the patient. Approximately 15% of breast malignancies will not be visualized mammographically. In the management of a palpable breast mass, a negative mammogram must not discourage biopsy of a clinically suspicious lesion. Electronically Signed By: Samy domingo/jessica:04/18/2024 17:02:21 letter sent: Normal Exam ACR BI-RADS Category 1: Negative
== END ==
PROVIDERS: PCP Student in an Organized Health Care Education/Training Program; Referring Provider Student in an Organized Health Care Education/Training Program; Visit Provider Student in an Organized Health Care Education/Training Program
DX: Z12.31 Encounter for screening mammogram for malignant neoplasm of breast (principal); Z80.3 Family history of malignant neoplasm of breast
CPT/HCPCS: 77063; 77067

== ENCOUNTER → 2024-06-02 09:39 | Outpatient (CLI) | payer BC, SELFPAY ==
--- NOTE | 2024-06-02 09:41 | DI.RAD.S_ITS ---
PROCEDURE: XR FOOT RT MIN 3V INDICATIONS: right foot pain x4 months TECHNIQUE: 3 views of the foot were acquired. COMPARISON: None. FINDINGS: Bones: No fractures or dislocations. Tiny plantar calcaneal spur. No suspicious bony lesions. Soft tissues: No tibiotalar joint effusion. Achilles tendon appears normal. IMPRESSION: Tiny plantar calcaneal spur. Dictated by: Farhan Mckeon M.D. on 06/02/2024 at 18:27 Approved by: Farhan Mckeon M.D. on 06/02/2024 at 18:29
== END ==
PROVIDERS: PCP Student in an Organized Health Care Education/Training Program; Referring Provider Student in an Organized Health Care Education/Training Program; Visit Provider Student in an Organized Health Care Education/Training Program
DX: M79.671 Pain in right foot (principal); G89.29 Other chronic pain
CPT/HCPCS: 73630

== ENCOUNTER 2024-06-14 07:52 | Emergency (ER) | payer BC, SELFPAY ==
[2024-06-14] VITALS (10 sets, daily range): BP systolic 128–145; BP diastolic 82–87; PULSE 77–91; RESP 16–19; TEMP 36.6–36.9; O2SAT 98–100; BMI 24.2
--- NOTE | 2024-06-14 08:29 | ED.GENADULT ---
HPI - General Adult General Chief complaint: Eye Problems Stated complaint: cant see and lights are blurry Time Seen by Provider: 06/14/24 08:12 Source: patient Mode of arrival: Ambulatory History of Present Illness HPI narrative: 49-year-old female complains of bilateral blurred vision onset for this morning, without headache. Denies history of diabetes. Denies history of migraine headaches or similar symptoms prior. No associated eye pain, eye redness, recent cold symptoms, eye discharge. Recently started new weight loss medication bupropion and naltrexone last week. No glasses/contact or corrective lenses worn or advised. Denies weakness or numbness to face arm or legs. No history of stroke or brain lesion problems, or neurological disease problems. No recent illness symptoms such as fevers, chills, shortness of breath, cough, chest pain, abdominal pain, nausea, vomiting, diarrhea, frequency of urination, painful urination. Related Data Previous Rx's Medication Instructions Recorded norethindrone 1.5 mg-ethinyl 1 tab PO DAILY #84 tabs 04/01/24 estradiol 30 mcg(21)/iron 75 mg(7) tablet (Junel FE 1.12/12 (28)) cyclobenzaprine 5 mg tablet 5 mg PO BEDTIME #60 tabs 05/23/24 cefdinir 300 mg capsule 300 mg PO BID 5 days #10 caps 06/14/24 Allergies Allergy/AdvReac Type Severity Reaction Status Date / Time No Known Allergies Allergy Unknown Verified 06/14/24 10:00 Review of Systems Review of Systems Narrative: See HPI Patient History Medical History (Updated 06/14/24 @ 10:01 by Jeremy Peralta MD) Polycystic ovaries Skin cancer Surgical History (Updated 01/19/23 @ 12:00 by Suyapa Ornelas RN) History of gynecologic surgery (02/09/20) Family History Father No problems noted. Mother No problems noted. Social History household members: spouse, family and children Smoking Status: Never smoker second hand exposure: No alcohol intake: current substance use type: does not use Smoking Status: Never smoker alcohol intake frequency: holidays/special occasions only Substance Use Type: does not use Exam Narrative Exam Narrative: GENERAL: Well-developed patient, in mild distress. HEAD: Atraumatic. Normocephalic. EYES: Pupils equal round and reactive. Extraocular motions intact. No scleral icterus. No injection or drainage. ENT: Nose without bleeding, purulent drainage. Throat without erythema, tonsillar hypertrophy or exudate. Airway patent. NECK: Trachea midline. Non tender CARDIOVASCULAR: Regular rate and rhythm without murmurs, gallops, or rubs. RESPIRATORY: Clear to auscultation. Breath sounds equal bilaterally. No wheezes, rales, or rhonchi. GASTROINTESTINAL: Abdomen soft, non-tender, nondistended. EXTREMITIES: No edema or joint tenderness. BACK: Nontender without deformity or crepitance. No flank tenderness. NEURO: AOx3. Motor 5/5 bilateral upper extremities and bilateral lower extremities. Cranial nerves intact. Sensation intact to light touch face arms legs. Smuwhi-vg-ckic testing normal. Normal finger counting, no double vision diplopia on lateral upper lower visual field testing. No obvious areas of visual field deficit, seems to have generalized blurred vision bilateral. SKIN: No rash or erythema of visible areas Initial Vital Signs Initial Vital Signs: Vital Signs Temperature 98.4 F 06/14/24 08:08 Pulse Rate 91 H 06/14/24 08:08 Respiratory Rate 16 06/14/24 08:08 Blood Pressure 145/87 H 06/14/24 08:08 Pulse Oximetry 99 06/14/24 08:08 Oxygen Delivery Method Room Air 06/14/24 08:08 Course Orders Ordered: Discontinued Medications Cefdinir (Cefdinir 300 Mg Capsule) 300 mg PO NOW ONE Stop: 06/14/24 10:00 Last Admin: 06/14/24 11:11 Dose: 300 mg Documented By: RAJANI Dexamethasone (Dexamethasone 10 Mg/Ml Vial) 10 mg IV NOW ONE Stop: 06/14/24 09:11 Last Admin: 06/14/24 09:43 Dose: 10 mg Documented By: RAJANI Diphenhydramine HCl (Diphenhydramine 50 Mg/Ml Vial) 25 mg IV NOW ONE Stop: 06/14/24 09:11 Last Admin: 06/14/24 09:46 Dose: 25 mg Documented By: RAJANI Sodium Chloride (Normal Saline 0.9%) 1,000 mls @ 1,000 mls/hr IV BOLUS ONE Stop: 06/14/24 10:09 Last Infusion: 06/14/24 10:43 Dose: Infused Documented By: Admin: 06/14/24 09:37 Dose: 1,000 mls/hr Documented By: RAJANI Ketorolac Tromethamine (Ketorolac 30 Mg/Ml Vial) 30 mg IV NOW ONE Stop: 06/14/24 09:11 Last Admin: 06/14/24 09:38 Dose: 30 mg Documented By: RAJANI Prochlorperazine (Prochlorperazine 10 Mg/2 Ml Vial) 10 mg IV NOW ONE Stop: 06/14/24 09:11 Last Admin: 06/14/24 09:39 Dose: 10 mg Documented By: RAJANI Vital Signs Vital signs: Vital Signs - 8 hr 06/14/24 08:08 06/14/24 09:39 06/14/24 10:44 Temperature 98.4 F Pulse Rate 91 H 77 83 Respiratory Rate 16 Blood Pressure 145/87 H 145/87 H Pulse Oximetry 99 100 Oxygen Delivery Method Room Air 06/14/24 11:00 06/14/24 11:30 Temperature Pulse Rate 89 82 Respiratory Rate Blood Pressure Pulse Oximetry 99 Oxygen Delivery Method Medical Decision Making Lab Data Lab results reviewed: Yes I reviewed the patient's lab results. Lab results narrative: Urinalysis suspicious for infection, urine culture ordered Labs: Lab Results 06/14/24 Range/Units 09:20 Urine RBC 0-1/hpf (0-5/HPF) Urine WBC 1-5/hpf (0-5/HPF) Ur Squamous Epith Cells 10-30 /hpf H (0-5/HPF) Amorphous Sediment 1+ Urine Bacteria Moderate (10-30) H (None) Ur Culture Indicated? Specimen cultured Vol Urine Centrifuged 10ml (spun) Point of Care Testing Test Results Negative Glucose POC 90 Urine Dip Bedside Urine Glucose Negative Bedside Urine Bilirubin - Negative Bedside Urine Ketone - Negative Urine Specific [place] 1.015 Bedside Urine Occult Blood - Negative Bedside Urine pH 6.0 Bedside Urine Protein - Negative Bedside Urine Urobilinogen - Negative Bedside Urine Nitrite - Negative Bedside Urine Leukocytes +/- 15 Esterase Point of care testing: Point of Care Testing Test Results Negative Glucose POC 90 Urine Dip Bedside Urine Glucose Negative Bedside Urine Bilirubin - Negative Bedside Urine Ketone - Negative Urine Specific [place] 1.015 Bedside Urine Occult Blood - Negative Bedside Urine pH 6.0 Bedside Urine Protein - Negative Bedside Urine Urobilinogen - Negative Bedside Urine Nitrite - Negative Bedside Urine Leukocytes +/- 15 Esterase Imaging Data MRI brain without and with contrast: Radiologist's Impression: [address] [address] Magnetic Resonance Report Signed Patient: Sandra Townsend MR#: [id number] : 1975 Acct:[id number] Age/Sex: 49 / F Date of Service: 06/14/24 Loc: ED Accession Number: [id number] Procedure: MR head/brain wo/w con Ordering Provider: Jeremy Peralta MD PROCEDURE: MR HEAD/BRAIN WO/W CON INDICATIONS: painless blurred vision, not better Migraine Rx TECHNIQUE: Noncontrast axial T1 spin echo, axial T2 fast spin echo, sagittal and axial FLAIR, coronal T2 fast spin echo, axial gradient echo, axial diffusion and ADC through the brain. After the administration of contrast, axial and coronal and sagittal 3D VIBE or T1 spin echo with fat saturation through the brain. COMPARISON: None. FINDINGS: Image quality: Excellent. CSF Spaces: Basal cisterns are patent. No extra-axial fluid collections. Ventricles are normal in size and shape. Brain: No midline shift. No intracranial bleeds or masses. No abnormal intracranial enhancement. The brainstem appears normal. Diffusion-weighted images demonstrate no acute infarct. A few scattered foci of T2 weighted hyperintensity can be seen within the white matter, which are primarily seen peripherally. Normal intravascular flow voids are present. Skull and face: Calvarial marrow is normal in signal. Orbits appear normal. Sinuses: Sinuses and mastoids appear clear. IMPRESSION: No imaging explanation is found for this patient's presenting symptoms. No masses or abnormal enhancement can be seen. There are foci of T2 weighted hyperintensity seen within the white matter, which are primarily located peripherally. This pattern is commonly observed in patients with a history of migraine headaches. Dictated by: Natalio Raya M.D. on 06/14/2024 at 11:42 Approved by: Natalio Raya M.D. on 06/14/2024 at 11:44 [facility] Narrative Medical decision making narrative: Painless bilateral blurred vision without headache, no history of known diabetes, we will check sugar to screen for undiagnosed hyperglycemia/diabetes. If negative consider migraine headache. Nonfocal neuro exam, we will hold off on CT head imaging for now, patient agreeable to trial of anti headache medication to see if visual symptoms resolved. No ocular pain, doubt acute angle glaucoma closure with bilateral painless symptoms. Exam not consistent with conjunctivitis. Lack of pain not consistent with iritis. No pain and bilateral, doubt acute open angle glaucoma. Urine test negative. BGM 90. Recent new medication bupropion and naltrexone, could be side effect of the medication but seems unusual, for now we will treat for possible atypical migraine as cause for bilateral painless blurred vision. Trial of IV Compazine, Benadryl, Toradol, Decadron, fluids. 1200, No significant change, no improvement bilateral blurring eyes symptoms, we will obtain MRI brain without and with contrast. MRI Brain without and with contrast showed no acute changes, no masses, see radiology report. Unclear cause blurred vision, still could be atypical migraine headache, not reposning to Rx thus far. Consider side effect new weight loss medications, stop them for now. Advised eye clinic evaluation Sunday in 2 days. Patient/ agree with this plan. Copy of MRI report and copy onto disc provided. DC home with , return precautions discssued. Discharge Plan Departure Patient Disposition: Home Clinical Impression: Blurry vision, bilateral, Urinary tract infection Activity Restrictions/Additional Instructions: Painless blurred vision both eyes, glucose normal, no history of diabetes, new medications bupropion and naltrexone last week. No injuries, no history of headaches or migraines. Trial of antimigraine therapy with various IV medications, no significant improvement if symptoms. MRI of the brain was therefore performed without contrast and then with contrast, no acute changes noted per Radiology report. Consider direct ocular exam with an lamination assembler on Sunday, to see if there is any other diagnosis that could be entertained from a very detailed directed exam in the anterior chamber mental chamber retina and other structures. However, timing is somewhat suspicious that 1 of those medications bupropion or naltrexone might be related to blurred vision if no other cause is determined. Please do not take these medications for now until this seems to be more clear. Follow up with Ophthalmology on Sunday. We had not have on-call Ophthalmology here, but contact information provided for a couple of local ophthalmologists if that is helpful for making phone call arrangements on Sunday. Return earlier to this/nearest emergency department for any change worsening symptoms or any concerns prior You also happened to have a urine infection noted today, oral antibiotic given, prescription for further antibiotics sent to your pharmacy. Drink plenty of fluids. Consider recheck of urine testing after completion of course of the antibiotics with your regular doctor as well. Prescriptions: New cefdinir 300 mg capsule 300 mg PO BID 5 Days Qty: 10 0RF No Action cyclobenzaprine 5 mg tablet 5 mg PO BEDTIME Qty: 60 2RF norethindrone-e.estradiol-iron [ 1.5/30 (28)] 1.5 mg-30 mcg (21)/75 mg (7) tablet 1 tab PO DAILY Qty: 84 3RF Referrals: Ann Marie Lindquist MD [Physician] - González Borrero MD [Physician] - Malou Suárez MD [Primary Care Provider] - Stand Alone Forms: Patient Portal/API/Survey
[2024-06-14] MEDS: SODIUM CHLORIDE 0.9% 1,000 ML 1000 ML IV (09:37)
[2024-06-14] MEDS: KETOROLAC 30 MG/ML VIAL IV (09:38)
[2024-06-14] MEDS: PROCHLORPERAZINE 10 MG/2 ML VIAL IV (09:39)
[2024-06-14] MEDS: DEXAMETHASONE 10 MG/ML VIAL IV (09:43)
[2024-06-14] MEDS: diphenhydrAMINE 50 MG/ML VIAL 25 MG IV (09:46)
[2024-06-14 09:49] LABS: Amorphous Sediment Urine 1+; Bacteria Urine Moderate (10-30); Culture Indicated Urine Specimen Cultured; RBC Urine 0-1/HPF (0-5/HPF); Squamous Epithelial Cell Urine 10-30 /HPF (0-5/HPF); Urine Volume 10mL (spun); WBC Urine 1-5/HPF (0-5/HPF)
[2024-06-14] MEDS: CEFDINIR 300 MG CAPSULE PO (11:11)
--- NOTE | 2024-06-14 11:20 | DI.MRI.S_ITS ---
PROCEDURE: MR HEAD/BRAIN WO/W CON INDICATIONS: painless blurred vision, not better Migraine Rx TECHNIQUE: Noncontrast axial T1 spin echo, axial T2 fast spin echo, sagittal and axial FLAIR, coronal T2 fast spin echo, axial gradient echo, axial diffusion and ADC through the brain. After the administration of contrast, axial and coronal and sagittal 3D VIBE or T1 spin echo with fat saturation through the brain. COMPARISON: None. FINDINGS: Image quality: Excellent. CSF Spaces: Basal cisterns are patent. No extra-axial fluid collections. Ventricles are normal in size and shape. Brain: No midline shift. No intracranial bleeds or masses. No abnormal intracranial enhancement. The brainstem appears normal. Diffusion-weighted images demonstrate no acute infarct. A few scattered foci of T2 weighted hyperintensity can be seen within the white matter, which are primarily seen peripherally. Normal intravascular flow voids are present. Skull and face: Calvarial marrow is normal in signal. Orbits appear normal. Sinuses: Sinuses and mastoids appear clear. IMPRESSION: No imaging explanation is found for this patient's presenting symptoms. No masses or abnormal enhancement can be seen. There are foci of T2 weighted hyperintensity seen within the white matter, which are primarily located peripherally. This pattern is commonly observed in patients with a history of migraine headaches. Dictated by: Natalio Raya M.D. on 06/14/2024 at 11:42 Approved by: Natalio Raya M.D. on 06/14/2024 at 11:44
--- NOTE | 2024-06-14 14:35 | PC.NURSE ---
Reassess; no change
== END 2024-06-14 14:36 | disposition home or self-care (01) ==
PROVIDERS: Emergency Provider Emergency Medicine; PCP Student in an Organized Health Care Education/Training Program
DX: H53.8 Other visual disturbances (principal); N39.0 Urinary tract infection, site not specified
CPT/HCPCS: 70553; 81003; 81015; 81025; 82962; 87086; 96361; 96374; 96375; 99284; A9579; J0780; J1100; J1200; J1885

== ENCOUNTER → 2025-01-12 09:00 | Outpatient (CLI) | payer BC, SELFPAY ==
[2025-01-12 09:52] LABS: Influenza A - CEPHEID Flu A NEGATIVE (NEGATIVE); Influenza B - CEPHEID Flu B NEGATIVE (NEGATIVE); Respiratory Syncytial Virus Negative (Negative)
[2025-01-12 09:53] LABS: COVID-19 CEPHEID 4-PLEX PCR Negative (Negative)
== END ==
PROVIDERS: PCP Student in an Organized Health Care Education/Training Program; Visit Provider Nurse Practitioner Family
DX: R05.1 Acute cough (principal); J02.9 Acute pharyngitis, unspecified
CPT/HCPCS: 0241U; 87070